=== PATIENT | female | born 1955 | race Two or more races ===

== ENCOUNTER → 2024-10-11 | Outpatient (CLI) | payer OTHER, SELFPAY ==
--- NOTE | 2024-10-11 16:34 | XR_ITS ---
Examination:Right hip AP, lateral, AP pelvis 3 views Technique: Hip AP lateral, AP pelvis, 3 views Exam date and time:October 11, 2024 1711 hours INDICATIONS: Onset right hip pain beginning 2 days ago getting worse FINDINGS: Prominent osteopenia Mild bilateral narrowing hip joints No right hip fracture or dislocation Left hip bones of the pelvis intact IMPRESSION: Mild bilateral hip joint narrowing No right or left hip fracture or dislocation.
== END | disposition home or self-care (01) ==
LOC: CDIM 16:30
PROVIDERS: PCP Family Medicine; Referring Provider Nurse Practitioner; Visit Provider Nurse Practitioner
DX: M25.852 Other specified joint disorders, left hip (principal); M25.851 Other specified joint disorders, right hip
CPT/HCPCS: 73502

== ENCOUNTER → 2024-12-18 | Outpatient (CLI) | payer OTHER, SELFPAY ==
--- NOTE | 2024-12-18 14:45 | XR_ITS ---
Examination: Bone densitometry Date and time of exam:December 18, 2024 1443 hours INDICATIONS: Menopause age 38 Technique: Lumbar spine and hip total bone mineralization values of an calculated. Peak reference and age match control results have been displayed. Findings: Lumbar spine total bone mineralization is0.886 gm/cm2. This is 1.5 standard deviations below peak reference. This is 0.7 standard deviations above age-matched controls. Hip total bone mineralization is 0.771 gm/cm2 This is 1.4 standard deviations below peak reference. This is 0.2 standard deviations above age-matched controls Impression: There is osteopenia based on lumbar spine measurements. There is osteopenia based on hip measurements
== END | disposition home or self-care (01) ==
LOC: CDIM 14:17
PROVIDERS: Referring Provider Nurse Practitioner Family; Visit Provider Nurse Practitioner Family
DX: M85.89 Other specified disorders of bone density and structure, multiple sites (principal)
CPT/HCPCS: 77080

== ENCOUNTER → 2025-02-04 | Outpatient (CLI) | payer OTHER, SELFPAY ==
--- NOTE | 2025-02-04 15:32 | XR_ITS ---
Examination: Knee, left , 3 views Technique: Knee AP, lateral, oblique 3 views Date and time of exam: February 04, 2025 1537 hours INDICATIONS: Left knee pain months FINDINGS: Significant osteopenia Mild to moderate tricompartment osteoarthritis, most prominent medial joint space No fracture IMPRESSION: Mild to moderate tricompartment osteoarthritis
== END | disposition home or self-care (01) ==
PROVIDERS: PCP Nurse Practitioner Family; Referring Provider Nurse Practitioner Family; Visit Provider Nurse Practitioner Family
DX: M17.12 Unilateral primary osteoarthritis, left knee (principal)
CPT/HCPCS: 73562

== ENCOUNTER 2025-05-28 13:30 | Outpatient (RCR) | payer OTHER, SELFPAY ==
--- NOTE | 2025-05-06 14:02 | PT.OIERPT ---
PT OP Initial Eval Patient Information Outpatient Physical Therapy Treatment Date: 05/06/25 Visit Reasons: Left knee pain Medical Diagnosis: M17.12 Treatment Dx #1: L knee pain Start of Care: 05/06/25 Date of Onset: 1 yr ago Smoking Status Smoking Status: Never smoker Initial Assessment Subjective: Pt is 70 yr old upper sorbian speaking female who reports L knee pain x1 yr. About 4 months later after falling on the knee it started hurting and the pain some days is intense. The pain is constant now and has been over the past 8 months and she points to the lateral joint line. This pain limits walking, getting into bed, kneeling and squatting tolerances. PMH: arthritis in knee Imaging: Xrays of L knee Mild to moderate tricompartment osteoarthritis Pt goal: less pain in L knee Objective: L knee AROM; Flexion: 103 deg Extension: full SLR: 45 deg Strength: Quads: 3+/5 HS: 4-/5 Varus stress: positive Jose A's: positive Assessment: Pt presentation consistent with imaging that shows OA and positive varus gapping of the L knee. PT recommends a knee brace for stability and she was given example printout. Pt may benefit from some trial visits to learn HEP and has poor/fair rehab potential to meet goals. Short Term and [employer] Associate Goals 1. Independent with HEP 2. Improved knee ROM to full extension to 115 deg flexion 3. Improved quad and hamstring strength to 4+/5 4. Improved ambulatory tolerance to community distances with symmetrical ?? gait pattern.??? Treatment Plan 1. Manual therapy ? 2. Therex ??? 3. Modalities as indicated, moist heat, ice, estim Frequency and Duration: 1-2x a week for 3-4 trial visits to learn HEP Certification Dates: 05/06/25 to 07/04/25 Procedure Charges OP PT Eval Mod Complex 30 minutes: Yes
--- NOTE | 2025-05-14 13:15 | PT.ODAYNRPT ---
PT Outpatient Daily Note OP Daily Note Outpatient Physical Therapy Treatment Date: 05/14/25 Visit Reasons: Left knee pain Subjective: Pt reports pain with the bike and total gym and mild with step ups. Objective: See F/S for therex Assessment: Pain limits loading the L knee with lunging and squatting consistent with OA Plan: Continue per POC Length of Time (minutes) of Treatment: 30 Minutes Procedure Charges Therapeutic Exercise 30 minutes: Yes
--- NOTE | 2025-05-21 14:36 | PT.ODAYNRPT ---
PT Outpatient Daily Note OP Daily Note Outpatient Physical Therapy Treatment Date: 05/21/25 Visit Reasons: Left knee pain Subjective: Pt reports pain with the bike and total gym and mild with step ups. Objective: See F/S for therex Assessment: Pain limits loading the L knee with lunging and squatting consistent with OA Plan: Continue per POC Length of Time (minutes) of Treatment: 30 Minutes Procedure Charges Therapeutic Exercise 30 minutes: Yes
--- NOTE | 2025-05-28 14:14 | PT.ODAYNRPT ---
PT Outpatient Daily Note OP Daily Note Outpatient Physical Therapy Treatment Date: 05/28/25 Visit Reasons: Left knee pain Subjective: Denies L knee pain and explains she is feeling better after each visit Objective: See F/S for therex Assessment: Pt tolerated therex well with no pain and reports she is noticing an improvement in her L LE strength. Plan: Continue with POC Length of Time (minutes) of Treatment: 30 Minutes Procedure Charges Therapeutic Exercise 30 minutes: Yes
== END 2025-06-01 23:59 | disposition home or self-care (01) ==
LOC: CPTX 13:30
PROVIDERS: PCP Nurse Practitioner Family; Referring Provider Nurse Practitioner Family; Visit Provider Nurse Practitioner Family
DX: M25.562 Pain in left knee (principal); M17.12 Unilateral primary osteoarthritis, left knee
CPT/HCPCS: 97110; 97162

== ENCOUNTER 2025-07-01 13:00 | Outpatient (RCR) | payer OTHER, SELFPAY ==
--- NOTE | 2025-06-04 14:26 | PTNOTE_ITS ---
PT Outpatient Daily Note OP Daily Note Outpatient Physical Therapy Treatment Date: 06/04/25 Visit Reasons: LOW BACK PAIN Subjective: Pt reports knee is doing ok, no new complalints. Objective: Please see flow sheet for ther ex list. Assessment: Added HS curl exercise, verbal cues to avoid hip flexion pt complied. Plan: Continue with poC. Length of Time (minutes) of Treatment: 30 Minutes SECURITY REPRESENTATIVE Service Modifier Method I: Divide the number of min of care provided by the SECURITY REPRESENTATIVE/LETTER CARRIER by the total min of care provided then multiply by 100. If greater than 11 percent modifier is required. Method II: Divide the total time of care provided to patient by 10 (round to the nearest whole number) and add 1 min. to set the minimum time requirement. If treatment total was 60 min., then 10% of 6 min PT CQ modifier applied: CQ Modifier applied Procedure Charges Therapeutic Exercise 30 minutes: Yes
--- NOTE | 2025-06-17 14:59 | PT.ODAYNRPT ---
PT Outpatient Daily Note OP Daily Note Outpatient Physical Therapy Treatment Date: 06/17/25 Visit Reasons: LOW BACK PAIN Subjective: Pt reports she is doing well and denies Lt knee pain. Objective: See F/S for therex performed Assessment: Progressed to SB squats and forward lunges; tolerated well with no Lt knee pain. Requires min verbal cues to improve form with exercises. Plan: Continue with POC Length of Time (minutes) of Treatment: 30 Minutes Procedure Charges Therapeutic Exercise 30 minutes: Yes
--- NOTE | 2025-06-25 14:28 | PT.ODAYNRPT ---
PT Outpatient Daily Note OP Daily Note Outpatient Physical Therapy Treatment Date: 06/25/25 Visit Reasons: LOW BACK PAIN Subjective: Pt c/o minimal L knee pain, states her knee no longer swells up like it used before starting PT. Objective: See F/S for therex performed Assessment: Improved mechanics with SB wall squats; less vc's and tc's to avoid knees over toes. No increase in pain with therex. Plan: Continue with POC Length of Time (minutes) of Treatment: 30 Minutes Procedure Charges Therapeutic Exercise 30 minutes: Yes
--- NOTE | 2025-07-01 13:36 | PT.ODAYNRPT ---
PT Outpatient Daily Note OP Daily Note Outpatient Physical Therapy Treatment Date: 07/01/25 Visit Reasons: LOW BACK PAIN Subjective: Pt reports her L knee is feeling better since starting PT. Objective: See F/S for therex performed Assessment: Performed squats best with treatment table elevated to provide tc. Improvement with form and mechanics with therex, min to none corrective cues required. Plan: Continue with POC Length of Time (minutes) of Treatment: 30 Minutes Procedure Charges Therapeutic Exercise 30 minutes: Yes
== END 2025-07-01 23:59 | disposition home or self-care (01) ==
LOC: CPTX 13:00
PROVIDERS: PCP Nurse Practitioner Family; Referring Provider Nurse Practitioner Family; Visit Provider Nurse Practitioner Family
DX: M25.562 Pain in left knee (principal); R26.2 Difficulty in walking, not elsewhere classified
CPT/HCPCS: 97110

== ENCOUNTER 2025-07-08 12:51 | Outpatient (RCR) | payer OTHER, SELFPAY ==
--- NOTE | 2025-07-08 14:26 | PT.ODS1RPT ---
PT OP Progress/Discharge Note Date of Service: 07/08/25 Progress Note/DC Note Progress Note/Discharge Note: DC Note Patient Information Visit Reasons: low back pain Service Continue Service or Discharge: Discharge Discharge Date: 07/08/25 Status Subjective: The L knee isn't hurting with squats and ADL's. She can ambulate around the store without L knee pain. She is pleased with progress and prepared to D/C with HEP Objective: L knee AROM: Extension: full Flexion: 105 deg Strength: Quads: 4/5 HS: 4/5 Squat: x10 without L knee pain Assessment: Pt has attended the eval and 8 Rx sessions with good progress to meet some goals. She is independent with HEP and can ambulate community distances with symmetrical pattern to meet those goals. She has improved hamstring and quad strength to 4/5 and knee flexion to 105 deg to almost meet those goals. She has met her personal pain goals and will continue with HEP. Plan: D/C with HEP Procedure Charges Therapeutic Exercise 30 minutes: Yes
== END 2025-08-01 23:59 | disposition home or self-care (01) ==
LOC: CPTX 12:51
PROVIDERS: PCP Nurse Practitioner Family; Referring Provider Nurse Practitioner Family; Visit Provider Nurse Practitioner Family
DX: M25.562 Pain in left knee (principal); M17.12 Unilateral primary osteoarthritis, left knee
CPT/HCPCS: 97110

== ENCOUNTER → 2025-07-17 | Outpatient (CLI) | payer OTHER, SELFPAY ==
--- NOTE | 2025-07-17 07:30 | XR_ITS ---
Examination: Abdomen sonogram, Limited Date and time of exam: July 17, 2025, 0751 hours, comparison October 07, 2022 INDICATIONS: Elevated liver function test on laboratory examination a few months ago Technique: Real-time claire scale transabdominal sonographic images of the upper abdomen obtained. Findings: Normal gallbladder Normal common bile duct 0.2 cm Pancreatic head 1.8 cm Liver 12.3 cm fatty infiltration, right lobe liver cyst 2.7 x 2.1 x 2.6 cm Normal hepatopetal portal venous flow Patent IVC IMPRESSION: Normal gallbladder Benign right lobe liver cyst 2.7 x 2.1 x 2.6 cm
== END | disposition home or self-care (01) ==
LOC: CDIM 07:32
PROVIDERS: PCP Family Medicine; Referring Provider Nurse Practitioner Family; Visit Provider Nurse Practitioner Family
DX: K76.89 Other specified diseases of liver (principal)
CPT/HCPCS: 76705

== ENCOUNTER → 2025-08-21 | Outpatient (CLI) | payer OTHER, SELFPAY ==
--- NOTE | 2025-08-21 09:20 | XR_ITS ---
EXAMINATION: Lumbar spine 3 views TECHNIQUE: AP, lateral: Lateral lower lumbar spine 3 views Date and time: August 21, 2025, 0933 hours INDICATIONS: Lower back pain radiating to left hip beginning 2 weeks ago FINDINGS: Lumbar dextroscoliosis 23 degrees No lumbar fracture Prominent osteophytes anteriorly L5-S1 Moderate diffuse lumbar degenerative disc disease No spondylolisthesis IMPRESSION: Moderate diffuse lumbar degenerative disc disease
== END | disposition home or self-care (01) ==
LOC: CDIM 09:08
PROVIDERS: PCP Nurse Practitioner Family; Referring Provider Nurse Practitioner Family; Visit Provider Nurse Practitioner Family
DX: M51.360 Other intervertebral disc degeneration, lumbar region with discogenic back pain only (principal)
CPT/HCPCS: 72100